=== PATIENT | male | born 1940 | race Caucasian/White ===

== ENCOUNTER 2021-01-29 13:46 | Inpatient (IN) | payer OTHER ==
[~2021-01-29] VITALS: Ht 188 cm; Wt 106.8 kg
[~2021-01-29 13:46] MED LIST: COLACE100 MG PO; HYDROCHLOROTHIA25 MG PO; HYDROCODON-ACE1 EAC4 PO; KAZANO 12.5-501 EACH PO; LIDOCAINE1 EAC1 TP; LISINOPRIL10 MG PO; MOBIC15 MG PO; OMNICEF 300 MG300 MG PO; TIZANIDINE HCL2 MG PO; VIBRAMYCIN100 MG PO
[2021-01-29 16:27] LABS: HEMOGLOBIN 14.1 gm/dl (14.0-17.5)
[2021-01-29 16:33] LABS: RED BLOOD COUNT 4.69 M/UL (4.20-5.50); WHITE BLOOD COUNT 78.9 K/UL (4.5-11.0)
[2021-01-29] MEDS ORDERED: MOBIC15 MG PO (20:20)
[2021-01-30 03:08] LABS: WHITE BLOOD COUNT 76.8 K/UL (4.5-11.0)
[2021-01-30 03:09] LABS: HEMOGLOBIN 11.6 gm/dl (14.0-17.5); RED BLOOD COUNT 3.9 M/UL (4.20-5.50)
[2021-01-30 03:30] LABS: BUN/CREATININE RATIO 21 (0-10)
[2021-01-31 05:46] LABS: WHITE BLOOD COUNT 71.9 K/UL (4.5-11.0)
[2021-01-31 06:23] LABS: BUN/CREATININE RATIO 17 (0-10)
[2021-02-01 10:05] LABS: HEMOGLOBIN 12.1 gm/dl (14.0-17.5); RED BLOOD COUNT 4.11 M/UL (4.20-5.50)
[2021-02-01 10:14] LABS: WHITE BLOOD COUNT 57.5 K/UL (4.5-11.0)
[2021-02-01] MEDS ORDERED: CLOPIDOGREL75 MG PO (16:05)
[2021-02-01] MEDS ORDERED: LOPRESSOR 25 MG25 MG PO (16:05)
[2021-02-01] MEDS ORDERED: PROTONIX 40 MG40 M1 PO (16:05)
[2021-02-01] MEDS ORDERED: ASPIRIN EC81 MG PO (16:05)
== END 2021-02-01 19:00 | disposition home or self-care (01) | DRG 683 ==
LOC: ER1 13:46 → CDU 18:14 → PROG CARE 18:14
PROVIDERS: Physician Assistant; ADMIT Internal Medicine
PROC: B24BZZZ Ultrasonography of Heart with Aorta (ICD-10-PCS; principal; 2021-01-30)
DX: N17.0 Acute kidney failure with tubular necrosis (principal); C91.10 Chronic lymphocytic leukemia of B-cell type not having achieved remission; Z20.822 Contact with and (suspected) exposure to COVID-19; I25.10 Atherosclerotic heart disease of native coronary artery without angina pectoris; M19.90 Unspecified osteoarthritis, unspecified site; E11.9 Type 2 diabetes mellitus without complications; E78.5 Hyperlipidemia, unspecified; E86.0 Dehydration; R26.89 Other abnormalities of gait and mobility; F10.10 Alcohol abuse, uncomplicated; F17.220 Nicotine dependence, chewing tobacco, uncomplicated; G40.909 Epilepsy, unspecified, not intractable, without status epilepticus; H91.10 Presbycusis, unspecified ear; I25.5 Ischemic cardiomyopathy; D64.9 Anemia, unspecified; I08.1 Rheumatic disorders of both mitral and tricuspid valves; R09.02 Hypoxemia; I44.4 Left anterior fascicular block; I44.0 Atrioventricular block, first degree; K44.9 Diaphragmatic hernia without obstruction or gangrene; I10 Essential (primary) hypertension; Z95.1 Presence of aortocoronary bypass graft; I25.2 Old myocardial infarction; Z99.81 Dependence on supplemental oxygen; Z91.81 History of falling; Z86.73 Personal history of transient ischemic attack (TIA), and cerebral infarction without residual deficits; Z79.4 Long term (current) use of insulin
CPT/HCPCS: ECHO; 36415; 71045; 80053; 81001; 82436; 82550; 82553; 82962; 83605; 83615; 83690; 83735; 83874; 83880; 84100; 84133; 84300; 84484; 84550; 85025; 85610; 85730; 86140; 87040; 93005; 93306; 96374; 96375; 99285; J0696; J1644; J7030; U0002

== ENCOUNTER 2021-04-27 17:48 | Inpatient (IN) | payer OTHER ==
[~2021-04-27] VITALS: Ht 188 cm; Wt 99.8 kg
[~2021-04-27 17:48] MED LIST changes: +ASPIRIN EC81 MG PO; +CLOPIDOGREL75 MG PO; +HYDROCODON-ACE1 EAC2 PO; -HYDROCODON-ACE1 EAC4 PO; +LOPRESSOR 25 MG25 MG PO; +PROTONIX 40 MG40 M1 PO; -TIZANIDINE HCL2 MG PO; +TIZANIDINE HCL4 MG PO
[2021-04-27 19:39] LABS: HEMOGLOBIN 13.4 gm/dl (14.0-17.5); RED BLOOD COUNT 4.72 M/UL (4.20-5.50)
[2021-04-27 19:49] LABS: WHITE BLOOD COUNT 50.8 K/UL (4.5-11.0)
[2021-04-27 20:09] LABS: BUN/CREATININE RATIO 13 (0-10)
[2021-04-28] MEDS ORDERED: ALBUTEROL2.5 MG/3 M INH (10:56)
[2021-04-28] MEDS ORDERED: METOPROLOL TART25 MG PO (10:56)
[2021-04-28] MEDS ORDERED: FUROSEMIDE20 MG PO (10:57)
[2021-04-28] MEDS ORDERED: VOLTAREN ARTHRI20 GM TOP (10:57)
[2021-04-28] MEDS ORDERED: PROMETHAZINE HC25 M1 PO (10:57)
[2021-04-28] MEDS ORDERED: LORAZEPAM I2 MG/1 ML PO (10:58)
[2021-04-29 04:23] LABS: HEMOGLOBIN 10.7 gm/dl (14.0-17.5); RED BLOOD COUNT 3.84 M/UL (4.20-5.50); WHITE BLOOD COUNT 36.7 K/UL (4.5-11.0)
== END 2021-04-30 16:45 | DRG 177 ==
LOC: ER1 17:48 → CDU 04-28 02:34 → CCU 04-28 16:13
PROVIDERS: Physician Assistant; Physician Assistant Medical; Student in an Organized Health Care Education/Training Program; ADMIT Internal Medicine
PROC: 3E0333Z Introduction of Anti-inflammatory into Peripheral Vein, Percutaneous Approach (ICD-10-PCS; principal; 2021-04-28)
PROC: 8E0ZXY6 Isolation (ICD-10-PCS; 2021-04-28)
DX: U07.1 COVID-19 (principal); J96.21 Acute and chronic respiratory failure with hypoxia; C91.10 Chronic lymphocytic leukemia of B-cell type not having achieved remission; I13.0 Hypertensive heart and chronic kidney disease with heart failure and stage 1 through stage 4 chronic kidney disease, or unspecified chronic kidney disease; Z66 Do not resuscitate; E78.5 Hyperlipidemia, unspecified; R26.89 Other abnormalities of gait and mobility; F10.10 Alcohol abuse, uncomplicated; J44.9 Chronic obstructive pulmonary disease, unspecified; N18.9 Chronic kidney disease, unspecified; E11.22 Type 2 diabetes mellitus with diabetic chronic kidney disease; F17.220 Nicotine dependence, chewing tobacco, uncomplicated; K44.9 Diaphragmatic hernia without obstruction or gangrene; I50.9 Heart failure, unspecified; M54.9 Dorsalgia, unspecified; G89.29 Other chronic pain; I25.10 Atherosclerotic heart disease of native coronary artery without angina pectoris; G47.33 Obstructive sleep apnea (adult) (pediatric); Z99.81 Dependence on supplemental oxygen; Z95.1 Presence of aortocoronary bypass graft; Z51.5 Encounter for palliative care; Z80.9 Family history of malignant neoplasm, unspecified; Z79.4 Long term (current) use of insulin; I25.2 Old myocardial infarction
CPT/HCPCS: 0240U; 36415; 36600; 70450; 71045; 80048; 80053; 80307; 81001; 82140; 82550; 82553; 82803; 82962; 83605; 83690; 83735; 83880; 84439; 84443; 84484; 85025; 85027; 85652; 86140; 87040; 87086; 94640; 94760; 99285; J0696; J1100; J1650